=== PATIENT | male | born 1975 | race Two or more races ===

== ENCOUNTER 2019-09-21 03:57 | Emergency (ER) | payer MEDICAID ==
[~2019-09-21] VITALS: Ht 180.3 cm; Wt 204.1 kg
[~2019-09-21 03:57] MED LIST: DOXY-286 PO; FURO1TAB31 PO; LISI-646 PO; METO-5 PO; SACC250C PO; SERT-160 PO
[2019-09-21 05:02] VITALS: BP 180/95
== END 2019-09-21 06:05 | disposition home or self-care (01) ==
LOC: ER 04:00
DX: S93.401A Sprain of unspecified ligament of right ankle, initial encounter (principal); I25.10 Atherosclerotic heart disease of native coronary artery without angina pectoris; K21.9 Gastro-esophageal reflux disease without esophagitis; E78.5 Hyperlipidemia, unspecified; I10 Essential (primary) hypertension; Z79.899 Other long term (current) drug therapy; X58.XXXA Exposure to other specified factors, initial encounter; Y93.89 Activity, other specified; Y92.89 Other specified places as the place of occurrence of the external cause; Y99.8 Other external cause status
CPT/HCPCS: 73610